=== PATIENT | male | born 1995 | race Caucasian/White ===

== ENCOUNTER 2022-06-29 16:46 | Emergency (ER) | payer OTHER, SELFPAY ==
[2022-06-29 17:01] VITALS: BP 110/67; PULSE 94; RESP 18; TEMP 36.1; O2SAT 98; BMI 16.9
--- NOTE | 2022-06-29 17:06 | ED_ITS ---
HPI - Psych General Chief Complaint: Psychiatric Symptoms Stated Complaint: Crisis Time Seen by Provider: 06/29/22 17:05 Source: patient Mode of arrival: ambulatory Limitations: no limitations History of Present Illness HPI Narrative: 27-year-old male presents with vague suicidal ideations, states to have anger and depression problems, is bipolar, and feels to be manic. MD complaint: suicidal ideation, feels depressed and anxiety Onset (ago): week(s) Duration: constant History of same: Yes Relieving factors: none Context: significant life stressor Associated psychiatric symptoms: depression, suicidal ideation, racing thoughts and delusions Associated symptoms: denies other symptoms If self harm: admits thoughts of self harm Related Data Home Medications Medication Instructions Recorded Confirmed No Known Home Meds 06/29/22 06/29/22 Allergies Allergy/AdvReac Type Severity Reaction Status Date / Time No Known Allergies Allergy Verified 06/29/22 17:01 Review of Systems Review of Systems: Constitutional: No Fever, No Chills ENT/Mouth: No Ear Pain, No Nasal Congestion, No sore throat Eyes: No Eye Pain, No Swelling, No Redness Cardiovascular: No Chest Pain, No SOB Respiratory: No Cough, No Sputum, No Dyspnea Gastrointestinal: No Nausea, No Vomiting, No Diarrhea, No Hematochezia, No Carter na Genitourinary: No Dysuria, No Urinary Frequency, No Hematuria Musculoskeletal: No Myalgias Skin: No Skin Lesions, No rash Neuro: No Weakness, No Numbness, No Paresthesias, No Dizziness, No Headache Psych: positive Anxiety, positive Depression, positive SI Heme/Lymph: No Lymphadenopathy Endocrine: No Polyuria, No Polydipsia Yes all other systems are reviewed and are negative [facility] Past Medical History Attestation statement: The following information was validated with the patient. Source: old records reviewed Social History Social History Advance Directives: No Advance Directives Information Provided: No Physical Exam Vital Signs: Vital Signs: Last Vital Signs Temp 98.5 F 06/30/22 08:21 Pulse 68 06/30/22 08:21 Resp 18 06/30/22 08:21 BP 95/59 L 06/30/22 08:21 Pulse Ox 99 06/30/22 08:21 O2 Del Method 11/04/22 08:21 BMI result Body Mass Index 16.9 Appearance: Alert. Oriented X3. Moderate emotional distress. Eyes: Pupils equal, round and reactive to light. ENT: Pharynx normal. Neck: Normal inspection. Neck supple. CVS: Normal heart rate and rhythm. Pulses normal. Respiratory: No respiratory distress. Breath sounds normal. Abdomen: Soft and nontender. Skin: Skin warm and dry. Normal skin color. Normal skin turgor. Extremities: Gait well-balanced well coordinated. Neuro: No motor deficit. No sensory deficit. Cranial nerves 2-12 intact. Course Course Course Narrative: 27-year-old male presents for psychiatric evaluation. Has vague suicidal ideations, but does not report a plan. States that he has anger and depression, has a history of bipolar disorder. Patient's speech appears pressured, states that he has ?bugging out?. Will order labs, COVID testing, and D . Midnight patient states to be anxious, pacing around, appears to be manic patient is asking to leave, patient should be admitted to , will give p.o. Ativan to help with his anxiety. 02:08 patient medically cleared, plan of care N and psychiatry consult clement chase [facility] - Psych Differential Diagnosis Differential diagnosis: Likely acute psychosis, suicidal ideation, bipolar disorder, depression, drug-induced psychotic disorder, acute anxiety and post- traumatic stress disorder Medical Records Attestation: I reviewed the patient's medical records. Lab Data Attestation: I reviewed the patient's lab results. Result diagrams: 06/29/22 17:07 06/29/22 17:07 Labs: Lab Results 06/29/22 06/29/22 06/29/22 Range/Units 17:07 17:07 17:07 WBC 6.5 (4.8-10.8) X10*3/uL RBC 4.91 (4.60-5.80) X10*6/uL Hgb 15.3 (14.0-18.0) g/dl Hct 44.2 (42.0-52.0) % MCV 90.0 (80.0-98.0) fL MCH 31.2 (27.0-33.0) pg MCHC 34.6 (31.0-36.0) g/dl RDW 11.5 (11.0-16.0) % Plt Count 192 (160-400) X10*3/uL MPV 10.1 (9.4-12.4) fL Immature Gran % (Auto) 0.2 (0.0-0.4) % Neut % (Auto) 64.8 (45-73) % Lymph % (Auto) 25.5 (20-40) % Cloud % (Auto) 7.7 (2-11) % Eos % (Auto) 1.2 (0-4) % Baso % (Auto) 0.6 (0-2) % Lymph # (Auto) 1.7 (1.2-4.9) X10*3/uL Cloud # (Auto) 0.5 (0.1-1.2) X10*3/uL Eos # (Auto) 0.1 (0.0-0.4) X10*3/uL Baso # (Auto) 0.0 (0.0-0.2) X10*3/uL Abs Immat Gran (auto) 0.01 (0.00-0.03) X10*3/uL Absolute Neuts (auto) 4.2 (2.0-8.3) x10*3/uL Absolute Nucleated RBC 0.000 (0.0-0.012) X10*3/uL Nucleated RBC % (auto) 0.0 (0.0-0.2) /100WBC Sodium 142 (135-145) mmol/L Potassium 3.7 (3.3-5.1) mmol/L Chloride 104 (96-108) mmol/L Carbon Dioxide 24 (22-29) mmol/L Anion Gap 18 (12-20) BUN 12 (9-16) mg/dL Creatinine 0.82 (0.5-1.4) mg/dL Estim Creat Clear Calc 90.1 Estimated GFR > 60 Random Glucose 101 (60-115) mg/dL Calcium 10.1 (8.4-10.2) mg/dL Total Bilirubin 0.7 (0.0-1.0) mg/dL Direct Bilirubin 0.3 (0.0-0.5) mg/dL AST 25 (5-37) U/L ALT 18 (0-40) U/L Alkaline Phosphatase 72 (39-117) U/L Total Protein 7.5 (6.5-8.0) g/dL Albumin 4.9 (3.5-5.0) g/dL Lipase 27 (8-78) U/L Urine Color Urine Appearance Urine pH (5.0-9.0) Ur Specific Huxley (1.005-1.025) Urine Protein (Neg-Trace) mg/dL Urine Glucose (UA) (Negative) mg/dL Urine Ketones (Negative) mg/dL Urine Blood (Negative) Urine Nitrite (Negative) Ur Leukocyte Esterase (Negative) Urine Opiates Screen (Not Detect) Urine Fentanyl Screen (Not Detect) Ur Barbiturates Screen (Not Detect) Ur Phencyclidine Scrn (Not Detect) Ur Amphetamines Screen (Not Detect) U Benzodiazepines Scrn (Not Detect) Urine Cocaine Screen (Not Detect) U Marijuana (THC) Screen (Not Detect) Ethyl Alcohol < 10 mg/dL COVID-19 ([facility]) Negative (Negative) COVID-19 Clin Com See Note 06/29/22 06/29/22 Range/Units 17:58 17:58 WBC (4.8-10.8) X10*3/uL RBC (4.60-5.80) X10*6/uL Hgb (14.0-18.0) g/dl Hct (42.0-52.0) % MCV (80.0-98.0) fL MCH (27.0-33.0) pg MCHC (31.0-36.0) g/dl RDW (11.0-16.0) % Plt Count (160-400) X10*3/uL MPV (9.4-12.4) fL Immature Gran % (Auto) (0.0-0.4) % Neut % (Auto) (45-73) % Lymph % (Auto) (20-40) % Cloud % (Auto) (2-11) % Eos % (Auto) (0-4) % Baso % (Auto) (0-2) % Lymph # (Auto) (1.2-4.9) X10*3/uL Cloud # (Auto) (0.1-1.2) X10*3/uL Eos # (Auto) (0.0-0.4) X10*3/uL Baso # (Auto) (0.0-0.2) X10*3/uL Abs Immat Gran (auto) (0.00-0.03) X10*3/uL Absolute Neuts (auto) (2.0-8.3) x10*3/uL Absolute Nucleated RBC (0.0-0.012) X10*3/uL Nucleated RBC % (auto) (0.0-0.2) /100WBC Sodium (135-145) mmol/L Potassium (3.3-5.1) mmol/L Chloride (96-108) mmol/L Carbon Dioxide (22-29) mmol/L Anion Gap (12-20) BUN (9-16) mg/dL Creatinine (0.5-1.4) mg/dL Estim Creat Clear Calc Estimated GFR Random Glucose (60-115) mg/dL Calcium (8.4-10.2) mg/dL Total Bilirubin (0.0-1.0) mg/dL Direct Bilirubin (0.0-0.5) mg/dL AST (5-37) U/L ALT (0-40) U/L Alkaline Phosphatase (39-117) U/L Total Protein (6.5-8.0) g/dL Albumin (3.5-5.0) g/dL Lipase (8-78) U/L Urine Color Yellow Urine Appearance Clear Urine pH 8.0 (5.0-9.0) Ur Specific Huxley 1.010 (1.005-1.025) Urine Protein Negative (Neg-Trace) mg/dL Urine Glucose (UA) Negative (Negative) mg/dL Urine Ketones Negative (Negative) mg/dL Urine Blood Negative (Negative) Urine Nitrite Negative (Negative) Ur Leukocyte Esterase Negative (Negative) Urine Opiates Screen Not Detected (Not Detect) Urine Fentanyl Screen Not Detected (Not Detect) Ur Barbiturates Screen Not Detected (Not Detect) Ur Phencyclidine Scrn Not Detected (Not Detect) Ur Amphetamines Screen Not Detected (Not Detect) U Benzodiazepines Scrn Not Detected (Not Detect) Urine Cocaine Screen Not Detected (Not Detect) U Marijuana (THC) Screen POSITIVE H (Not Detect) Ethyl Alcohol mg/dL COVID-19 ([facility]) (Negative) COVID-19 Clin Com Discharge Plan Discharge Clinical Impression: Acute psychosis, Suicidal ideation, Bipolar disorder, Depression Patient Disposition: Still a Patient Prescriptions: No Action No Known Home Meds
[2022-06-29 17:13] LABS: MANUAL DIFF FLAG NO
[2022-06-29 17:15] LABS: Basophils Percent Auto 0.6 % (0-2); Eosinophils Absolute Auto 0.1 X10*3/uL (0.0-0.4); Eosinophils Percent Auto 1.2 % (0-4); Hematocrit 44.2 % (42.0-52.0); Hemoglobin 15.3 g/dl (14.0-18.0); Imm Gran Abs Auto 0.01 X10*3/uL (0.00-0.03); Imm Gran Pct Auto 0.2 % (0.0-0.4); Lymphocytes Absolute Auto 1.7 X10*3/uL (1.2-4.9); Lymphocytes Percent Auto 25.5 % (20-40); Mean Corpuscular HGB Conc 34.6 g/dl (31.0-36.0); Mean Corpuscular Hemoglobin 31.2 pg (27.0-33.0); Mean Platelet Volume 10.1 fL (9.4-12.4); Monocytes Absolute Auto 0.5 X10*3/uL (0.1-1.2); Monocytes Percent Auto 7.7 % (2-11); Neutrophils Absolute Auto 4.2 x10*3/uL (2.0-8.3); Neutrophils Percent Auto 64.8 % (45-73); Platelet Count 192 X10*3/uL (160-400); Red Blood Count 4.91 X10*6/uL (4.60-5.80); Red Cell Distribution Width 11.5 % (11.0-16.0); White Blood Count 6.5 X10*3/uL (4.8-10.8)
[2022-06-29 17:28] LABS: COVID-19 Test Negative (Negative); IDNOW Serial# 16C4AD1C
[2022-06-29 17:31] LABS: Alanine Aminotransferase 18 U/L (0-40); Albumin Level 4.9 g/dL (3.5-5.0); Alkaline Phosphatase 72 U/L (39-117); Anion Gap 18 (12-20); Aspartate Amino Transferase 25 U/L (5-37); Bilirubin Direct 0.3 mg/dL (0.0-0.5); Bilirubin Total 0.7 mg/dL (0.0-1.0); Blood Urea Nitrogen 12 mg/dL (9-16); Calcium 10.1 mg/dL (8.4-10.2); Carbon Dioxide 24 mmol/L (22-29); Chloride 104 mmol/L (96-108); Creatinine Clr Calc Pharmacy 90.1; Estimated Glomerular Filt Rate > 60; Ethanol < 10 mg/dL; Glucose Random 101 mg/dL (60-115); Lipase 27 U/L (8-78); Potassium 3.7 mmol/L (3.3-5.1); Sodium 142 mmol/L (135-145); Total Protein 7.5 g/dL (6.5-8.0)
[2022-06-29 18:05] LABS: Appearance Urine Clear; Color Urine Yellow; Glucose Urine UA Negative (Negative); Leukocyte Esterase Urine Negative (Negative); Nitrite Urine Negative (Negative); Urine Blood Negative (Negative); Urine Ketones Negative (Negative); Urine Protein Negative (Neg-Trace)
[2022-06-29 18:25] LABS: Amphetamine Screen Urine Not Detected (Not Detect); Barbiturates, Urine Not Detected (Not Detect); Benzodiazepines Screen Urine Not Detected (Not Detect); Cannabinoid Screen Urine POSITIVE (Not Detect); Cocaine Screen Urine Not Detected (Not Detect); Fentanyl, urine Not Detected (Not Detect); Opiate Screen Urine Not Detected (Not Detect); Phencyclidine Screen Urine Not Detected (Not Detect)
--- NOTE | 2022-06-29 23:05 | PC.NURSE ---
called report before patient arrived stating he said, he was bugging out started breaking things and having erratic behavior. Blacked out did not remember anything became paranoid, disassociating from reality.
[2022-06-30] MEDS: LORazepam 1 MG TABLET 2 MG PO (00:14)
--- NOTE | 2022-06-30 00:16 | PC.NURSE ---
Patient was feeling stir crazy saying he feels like he wants to leave. Spoke to Ashley PILLAI. She spoke to patient and gave a verbal order of ativan 2mg po to help him sleep. She did not feel he was safe to go home.
[2022-06-30 00:21] VITALS: BP 107/60; PULSE 58; RESP 16; TEMP 36.5; O2SAT 98
--- NOTE | 2022-06-30 02:27 | MHC.CARE ---
Pt was accepted to [facility] however new plan of care will be a follow up for pt to determine if he meets criteria. Psych Provider requested pt be a f/u tomorrow instead of being admitted.
--- NOTE | 2022-06-30 03:00 | PC.NURSE ---
Addendum entered by Glenys Cummings RN 06/30/22 06:59: report given to GEORGIA Mai Original Note: report received from GEORGIA Stein pt appear asleep no signs of acute distress notice breathing equally unlabored close monitoring maintained
--- NOTE | 2022-06-30 07:07 | PC.NURSE ---
report taken from teetee mckeon. pt is asleep in bed- no distress noted. plan to be re evaluated this am.
[2022-06-30 08:21] VITALS: BP 95/59; PULSE 68; RESP 18; TEMP 36.9; O2SAT 99
== END 2022-06-30 10:40 | disposition home or self-care (01) ==
PROVIDERS: Emergency Medicine; Nurse Practitioner Family; Emergency Provider Emergency Medicine; PCP Nurse Practitioner Family
DX: F23 Brief psychotic disorder (principal); F31.5 Bipolar disorder, current episode depressed, severe, with psychotic features; R45.851 Suicidal ideations; F41.9 Anxiety disorder, unspecified; Z20.822 Contact with and (suspected) exposure to COVID-19; F12.90 Cannabis use, unspecified, uncomplicated; F17.210 Nicotine dependence, cigarettes, uncomplicated
CPT/HCPCS: 80053; 80307; 81003; 82077; 82248; 83690; 85025; 87635; 99284

== ENCOUNTER 2022-07-27 11:00 | Outpatient (RCR) | payer OTHER, SELFPAY ==
[2022-07-04 11:11] VITALS: BMI 16.5
--- NOTE | 2022-07-04 13:56 | PC.ADMIT ---
patricio is a 27 year old male who was referred to [facility] by the [facility] Care Team d/t increased depression and increased anxiety with panic attacks. Patient reports financial problems and difficulty paying bills. Stated he was out of work for three months and would have been homeless if it wasn't for the help of others helping him pay his bills. Patient reports history of nausea and difficulty eating when he is feeling increase stress and anxiety. Reports weight loss of 10 lbs with in the past week and relates this to anxiety and unable to eat. Patient is currently underweight. Patient reports he is neglecting his personal care not showering or brushing his teeth. Patient smoking marijuana daily to try and decrease his anxiety. Educated patient about the effects of heavy use on mental and physical health. Patient lives with his partner and 6 year old child. Reports partner is supportive. Patient is alert and oriented x4. Calm and cooperative. Presented with depressed mood and anxious affect. Reports passive SI, no plan or intent. Patient not on any medications as this time confirmed with patient and patient's pharmacy.
[2022-07-04 16:10] LABS: Amphetamine Screen Urine Not Detected (Not Detect); Barbiturates, Urine Not Detected (Not Detect); Benzodiazepines Screen Urine Not Detected (Not Detect); Cannabinoid Screen Urine POSITIVE (Not Detect); Cocaine Screen Urine Not Detected (Not Detect); Fentanyl, urine Not Detected (Not Detect); Opiate Screen Urine Not Detected (Not Detect); Phencyclidine Screen Urine Not Detected (Not Detect)
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
--- NOTE | 2022-07-06 15:41 | HO.PHPIOP ---
After discussing aftercare options with pt, I called to refer him to [facility]. They do not take his insurance. I then called and spoke with pt and he would like a referral to [facility]. I called [facility] and spoke to Aylin Fischer (sp?) who is currently in charge of hospital discharges. She took some demographic information and said the team would be calling me back early next week, and will email me registration/ intake paperwork. She said it's difficult to access treaters with pt's particular insurance, but they do take it. She also said there will likely be a somewhat longer wait for an in-person therapist. Pt did say that an in-person therapist is very important to him, and I let her know this.
--- NOTE | 2022-07-06 15:46 | HO.PHPIOP ---
I met with pt and reviewed treatment goals/ treatment plan. We also discussed aftercare options. Pt said he likes the program and is benefitting from it.
--- NOTE | 2022-07-06 15:54 | HO.PHPIOP ---
Case opened in treatment team.
--- NOTE | 2022-07-14 11:58 | HO.PHPPROGNO ---
Subjective Subjective Date of Service: 07/14/22 Reason For Visit: bipolar Medical Problems Affecting Mental Status: No Interim History: Reports mood has been fairly stable, states ?I had a manic episode this morning ?. Sleep improved, appetite poor. No SI, feels safe. No side effects from medications. Cannabis use decreased. Reports more energy, states still not motivated. Medication Compliance: Yes Side effects from medications: No Attending Groups: Yes Review of Systems Acute medical concerns: No Medical Review of Systems: unchanged Review of Systems Review of Systems Yes all other systems are reviewed and are negative Constitutional: Reports no additional constitutional complaints Diagnostics Vital Signs (24Hr): BMI result Body Mass Index 16.5 Assessment & Plan Assessment & Plan (1) Bipolar disorder: Status: Acute Code(s): F31.9 - Bipolar disorder, unspecified Assessment and Plan: Patient reports he had been feeling fairly well until this morning, when he got into an argument with his girlfriend. Patient taking Seroquel, Lamictal. Discussed increasing doses of both as appropriate. Lamictal titration schedule reviewed with patient. Seroquel increased to 50 mg at bedtime, with 25 mg once daily p.r.n. for anxiety/agitation. Patient requesting Ativan, as he states that helps when he feels like this. Patient reports he has never been prescribed Ativan by a provider. The medication was discussed in detail, including risks, benefits, side effects, etc.. Patient reports he had asked his primary care provider for this medication in the past, and was told they would not prescribe it. We discussed alternatives, such as hydroxyzine. He states he has not been utilizing the p.r.n. hydroxyzine. He was encouraged to use it. Denies any SI, reports that he feels safe. (2) Cannabis use disorder: Status: Acute Code(s): F12.90 - Cannabis use, unspecified, uncomplicated Assessment and Plan: Patient has been able to lower his intake of cannabis use. Reports that he used twice this week, 1 time last week. Became angry this morning. Took 1 of his girlfriends Ativan, which quickly manage his symptoms. We discussed this situation, in relation to managing mood fluctuations, managing emotions, rather than ?a manic episode ?. Which patient described as. Reviewed symptoms of juan/hypomania, as well as momentary difficulties with mood fluctuation, angry outbursts. Plan 1. Continue with current [facility] plan of care. 2. Lamictal 50 mg x 14 days prescribed, to be started upon completion of Lamictal 25 mg daily times 14 days. Patient then to proceed to Lamictal 100 mg daily thereafter. 3. Quetiapine dose increased to 50 mg at bedtime, with 25 mg once daily p.r.n.. 4. Patient has hydroxyzine p.r.n. prescription available. 5. Follow-up as per protocol. Patient educated on: diagnosis, medication risk/benefits, substance abuse and therapeutic strategies Informed Consent: understands Reason for contiued partial hosp. stay Substantial Risk for: inability to function and rapid decompensation Certification I certify that partial hospital treatment is medically necessary due to the symptoms and problems resulting from the patient's mental illness and the failure to treat the patient at the partial hospital level of care would likely result in the patient requiring inpatient psychiatric care which could not be prevented at a less intensive level of care. I spent minutes with the patient and/or on the patient floor today, greater than?50% of which was spent counseling/coordinating care. Discharge Plan Discharge Attending provider: Usama Snow Medications: New hydroxyzine HCl 10 mg tablet 10 mg PO TID PRN (Reason: anxiety) Qty: 21 0RF lamotrigine 25 mg tablet 50 mg PO DAILY 14 Days Qty: 28 0RF Rx Instructions: After completion of lamotrigine 25mg daily for 14 days, Start lamotrigine 50mg daily for 14 days. lamotrigine 100 mg tablet 100 mg PO DAILY Qty: 30 0RF Rx Instructions: After completion of lamotrigine 50mg for 14 days, then start lamotrigine 100mg daily quetiapine 25 mg tablet See Rx Instructions .ROUTE .COMPLEX Qty: 21 0RF Rx Instructions: 50 mg orally daily at bedtime, and 25mg once daily as needed for anxiety Stand Alone Forms: Patient Portal Discharge page Patient Education: Hydroxyzine (By mouth), Lamotrigine (By mouth), Quetiapine (By mouth)
--- NOTE | 2022-07-17 09:42 | PC.NURSE ---
Patient did not show up to the program this morning. I called Usama and he stated he left a message at the program this morning. He reports having a fever and a cough over the weekend and thought he would feel better today however he does not. Reports Covid test negative. [facility] staff is aware.
--- NOTE | 2022-07-19 14:31 | HO.PHPPROGNO ---
Subjective Subjective Date of Service: 07/19/22 Reason For Visit: bipolar Medical Problems Affecting Mental Status: No Interim History: Reports had a rough weekend , explains he was physically sick. Describes mood as I don't know, not sure . Denies any SI, no safety concerns. Stopped quetiapine and lamotrigine last Sunday (6 days ago), as he ran out and did not hear from pharmacy that the meds were available for pick-up. Medication Compliance: No Attending Groups: Yes Review of Systems Acute medical concerns: No Had been out sick earlier this week. Medical Review of Systems: unchanged Review of Systems Review of Systems Yes all other systems are reviewed and are negative Constitutional: Reports no additional constitutional complaints Mental Status Exam Mental Status Exam Narrative: NAD. Describes mood as I don't know . Presents with anxious, somewhat irritable, labile affect. Defensive, guarded at times. Patient Appearance: Appropriate Patient Orientation: Person, Place, Time and Situation Level of Consciousness: Appropriate Patient Behavior: Appropriate, Cooperative, Anxious and Good Eye Contact Affect Description: Anxious and Labile Patient Cognition Impaired: No Ability to Follow Directions: Good Speech Pattern: Clear and Appropriate Memory Description: Intact Hallucinations: None Delusions: Paranoid Ideation (Believes others are talking about him.) Perceptual Disturbances: Depersonalization Thought Process: Intact Thought Content: positive for Intact Depressive Symptoms: Increased Anxiety, Difficulty Sleeping, Loss of Int. in Activity, Hopelessness, Increased Fatigue, Loss of Energy and Difficulty Concentrating Judgement: Fair Diagnostics Vital Signs (24Hr): BMI result Body Mass Index 16.5 Assessment & Plan Assessment & Plan (1) Bipolar disorder: Status: Acute Code(s): F31.9 - Bipolar disorder, unspecified Assessment and Plan: Reports had a rough weekend , explains he was physically sick. Describes mood as I don't know, not sure . Denies any SI, no safety concerns. Stopped quetiapine and lamotrigine last Sunday (6 days ago), as he ran out and did not hear from pharmacy that the meds were available for pick-up. Expresses ambivalence regarding remaining on medication. States that he does not want to rely on medications that will be filled ?on the whim of the pharmacy. I did express concern, intended purpose of meds, told him medications are at the pharmacy if he chooses to pick them up. Reviewed titration schedule of Lamictal. Also informed him that if he felt he was too sedated with quetiapine he could always cut tab in half. Patient reports that he will ?think about it? over the weekend. Plan 1. Continue with current [facility] plan of care. 2. Continue to encourage patient to take mood stabilizer medications. 3. Follow-up as per protocol. Patient educated on: diagnosis, medication risk/benefits and therapeutic strategies Informed Consent: understands Reason for contiued partial hosp. stay Substantial Risk for: inability to function and rapid decompensation Certification I certify that partial hospital treatment is medically necessary due to the symptoms and problems resulting from the patient's mental illness and the failure to treat the patient at the partial hospital level of care would likely result in the patient requiring inpatient psychiatric care which could not be prevented at a less intensive level of care. I spent minutes with the patient and/or on the patient floor today, greater than?50% of which was spent counseling/coordinating care. Discharge Plan Discharge Attending provider: Usama Snow Medications: New hydroxyzine HCl 10 mg tablet 10 mg PO TID PRN (Reason: anxiety) Qty: 21 0RF lamotrigine 25 mg tablet 50 mg PO DAILY 14 Days Qty: 28 0RF Rx Instructions: After completion of lamotrigine 25mg daily for 14 days, Start lamotrigine 50mg daily for 14 days. lamotrigine 100 mg tablet 100 mg PO DAILY Qty: 30 0RF Rx Instructions: After completion of lamotrigine 50mg for 14 days, then start lamotrigine 100mg daily quetiapine 25 mg tablet See Rx Instructions .ROUTE .COMPLEX Qty: 21 0RF Rx Instructions: 50 mg orally daily at bedtime, and 25mg once daily as needed for anxiety Stand Alone Forms: Patient Portal Discharge page Patient Education: Hydroxyzine (By mouth), Lamotrigine (By mouth), Quetiapine (By mouth), Bipolar Disorder (DC), Cannabis Abuse (DC)
--- NOTE | 2022-07-26 13:00 | HO.PHPIOP ---
I met with pt to discuss aftercare plans. he has not completed paperwork for [facility] referral. He said after thinking about it, he has decided he doesn't want medication management or individual therapy. He has not resumed psychiatric medication after stopping what he started while sick with influenza, and has decided not to restart it. He said he finds individual therapy ineffective. He would rather do some sort of other activity, like a social group or an activity. [facility] and [facility] (game night, etc). Pt is still scheduled for discharge tomorrow.
--- NOTE | 2022-07-27 15:06 | P.PNPSP_ITS ---
Subjective Subjective Date of Service: 07/27/22 Reason For Visit: bipolar Medical Problems Affecting Mental Status: No Interim History: Describes mood as ?I am feeling pretty good ?. States that he feels more stable. No SI/HI, no safety concerns. Has stopped all medications. Feels stable discharge from [facility] at this time. Believes he does bipolar disorder, but that it may actually be ADHD. Medication Compliance: No Side effects from medications: No (not applicable) Attending Groups: Yes Review of Systems Acute medical concerns: No Medical Review of Systems: unchanged Review of Systems Review of Systems Yes all other systems are reviewed and are negative Constitutional: Reports no additional constitutional complaints Mental Status Exam Mental Status Exam Narrative: NAD. Patient Appearance: Appropriate Patient Orientation: Person, Place, Time and Situation Level of Consciousness: Appropriate Patient Behavior: Appropriate, Cooperative and Good Eye Contact Mood Description: Appropriate Affect Description: Appropriate Patient Cognition Impaired: No Ability to Follow Directions: Excellent Speech Pattern: Clear and Appropriate Memory Description: Intact Hallucinations: None Delusions: Not Present Thought Process: Intact Thought Content: positive for Intact Depressive Symptoms: Difficulty Concentrating Judgement: Good Diagnostics Vital Signs (24Hr): BMI result Body Mass Index 16.5 Assessment & Plan Assessment & Plan (1) Bipolar disorder: Status: Acute Code(s): F31.9 - Bipolar disorder, unspecified Assessment and Plan: Describes mood as ?I am feeling pretty good ?. States that he feels more stable. Reports no anger outbursts, no frustration. No SI/HI, no safety concerns. Has stopped all medications. Would prefer not to take any meds at this time. Feels stable discharge from [facility] at this time. States that he found groups to be helpful. Believes he does bipolar disorder, but that it may actually be ADHD. Who believes that his symptoms are actually more of ADHD type, and that he has experienced some of these since childhood. States that his father had similar symptoms, and had been diagnosed with ADHD. He plans to contact his primary care provider for evaluation/assessment. (2) Cannabis use disorder: Status: Acute Code(s): F12.90 - Cannabis use, unspecified, uncomplicated Assessment and Plan: No concerns with cannabis use at this time, does not see use as an issue. Plan 1. Patient appears stable for discharge from [facility] at this time. 2. Patient to follow-up with outpatient providers going forward. Patient educated on: diagnosis, medication risk/benefits and therapeutic strategies Reason for contiued partial hosp. stay Substantial Risk for: stable for discharge Certification I certify that partial hospital treatment is medically necessary due to the symptoms and problems resulting from the patient's mental illness and the failure to treat the patient at the partial hospital level of care would likely result in the patient requiring inpatient psychiatric care which could not be prevented at a less intensive level of care. I spent minutes with the patient and/or on the patient floor today, greater than?50% of which was spent counseling/coordinating care. Discharge Plan Discharge Attending provider: Usama Snow Medications: New hydroxyzine HCl 10 mg tablet 10 mg PO TID PRN (Reason: anxiety) Qty: 21 0RF lamotrigine 25 mg tablet 50 mg PO DAILY 14 Days Qty: 28 0RF Rx Instructions: After completion of lamotrigine 25mg daily for 14 days, Start lamotrigine 50mg daily for 14 days. lamotrigine 100 mg tablet 100 mg PO DAILY Qty: 30 0RF Rx Instructions: After completion of lamotrigine 50mg for 14 days, then start lamotrigine 100mg daily quetiapine 25 mg tablet See Rx Instructions .ROUTE .COMPLEX Qty: 21 0RF Rx Instructions: 50 mg orally daily at bedtime, and 25mg once daily as needed for anxiety Stand Alone Forms: Patient Portal Discharge page Patient Education: Hydroxyzine (By mouth), Lamotrigine (By mouth), Quetiapine (By mouth), Bipolar Disorder (DC), Cannabis Abuse (DC)
== END 2022-07-27 23:59 | disposition home or self-care (01) ==
LOC: HO.PHPA 11:00
PROVIDERS: Nurse Practitioner Psychiatric/Mental Health; Visit Provider Psychiatry & Neurology Psychiatry
DX: F31.9 Bipolar disorder, unspecified (principal); F12.90 Cannabis use, unspecified, uncomplicated; Z79.899 Other long term (current) drug therapy
CPT/HCPCS: 80307; 90792; 90853